=== PATIENT | male | born 1990 | race Caucasian/White ===

== ENCOUNTER 2021-07-25 01:57 | Emergency (ER) | payer SELFPAY ==
[~2021-07-25] VITALS: Ht 198.1 cm; Wt 124.7 kg
[2021-07-25] MEDS ORDERED: OLANZAPINE 5 MG TABLET PO ONE (02:30)
[2021-07-25] MEDS ORDERED: diphenhydrAMINE HCL 25 MG CAPSULE ONE (02:30)
[2021-07-25] MEDS ORDERED: diphenhydrAMINE HCL 25 MG CAPSULE PO ONE (02:30)
[2021-07-25] MEDS ORDERED: OLANZAPINE 5 MG TABLET ONE (02:31)
[2021-07-25 02:44] VITALS: BP 130/80
--- NOTE | 2021-07-25 02:44 | NUR ---
Patient discharged to home in stable condition. Written and verbal after care instructions given. Patient verbalizes understanding of instruction.
== END 2021-07-25 02:44 | disposition home or self-care (01) ==
LOC: ER 02:04
DX: F15.90 Other stimulant use, unspecified, uncomplicated (principal)
CPT/HCPCS: 99283; Q0163